=== PATIENT | male | born 1950 | race Caucasian/White ===

== ENCOUNTER 2020-03-07 22:45 | Emergency (ER) | payer MEDICARE, OTHER, SELFPAY ==
[2020-03-07 23:16] VITALS: BP 140/92; PULSE 66; RESP 18; TEMP 36.4; O2SAT 96; BMI 29.5
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
[2020-03-08 01:55] VITALS: RESP 18
[2020-03-08] MEDS: HYDROmorphone 1 mg/mL INJ 1 mL IVP (01:55)
[2020-03-08] MEDS: ondansetron 2 mg/ML SDV 2 mL 4 MG IVP (01:56)
[2020-03-08] MEDS: lidocaine 1% INJ 20 mL INJECTION (03:53)
--- NOTE | 2020-03-08 04:45 | XRR_ITS ---
PROCEDURE INFORMATION: Exam: XR Right Finger(s) Exam date and time: 03/08/2020 5:14 AM Age: 70 years old Clinical indication: Condition or disease; Other: Post reduction; Additional info: Post reduc TECHNIQUE: Imaging protocol: XR Right fingers. Views: Minimum 2 views. COMPARISON: No relevant prior studies available. FINDINGS: Bones/joints: There is near anatomic alignment at the 2nd distal interphalangeal joint, improved since the prior radiograph. There is amputation of the tip of the distal 2nd phalanx. There are small osseous fragments adjacent to the 2nd distal interphalangeal joint which are smoothly corticated suggesting soft tissue calcifications related to degenerative disease rather than fractures. Soft tissues: Marked irregularity of the soft tissues overlying the distal 2nd phalanx. XR/XR finger RT min 2V [id number] IMPRESSION: 1. Improved alignment post reduction. 2. Amputation of the distal 2nd phalangeal tuft.
== END 2020-03-08 06:10 | disposition home or self-care (01) ==
PROVIDERS: Emergency Provider Emergency Medicine
DX: S62.609B Fracture of unspecified phalanx of unspecified finger, initial encounter for open fracture (principal); S63.259A Unspecified dislocation of unspecified finger, initial encounter; S61.310A Laceration without foreign body of right index finger with damage to nail, initial encounter; W31.89XA Contact with other specified machinery, initial encounter
CPT/HCPCS: 12002; 12042; 12345; 26770; 73140; 96365; 96375; 99282; 99284; A6446; J0690; J1170; J2001; J2405; J3490